=== PATIENT | male | born 2000 | race African-American/Black ===

== ENCOUNTER → 2024-01-31 | Outpatient (CLI) | payer OTHER | LOC: MHCPAIN 07:46 | DX: M51.26 Other intervertebral disc displacement, lumbar region (principal); M47.817 Spondylosis without myelopathy or radiculopathy, lumbosacral region | CPT/HCPCS: G0463 ==

== ENCOUNTER → 2024-03-15 | Outpatient (CLI) | payer OTHER | LOC: MHCPAIN 07:43 | DX: M51.26 Other intervertebral disc displacement, lumbar region (principal); M51.36 Other intervertebral disc degeneration, lumbar region | CPT/HCPCS: G0463 ==

== ENCOUNTER → 2024-05-18 | Outpatient (CLI) | payer OTHER ==
[~2024-05-18] MED LIST: Iohexol 300 - 10 ML VIAL ONE; Lidocaine PF 2% (20 MG/ML) 2 ML VIAL ONE
== END ==
LOC: MHCPAIN 12:31
DX: M54.16 Radiculopathy, lumbar region (principal); M54.50 Low back pain, unspecified
CPT/HCPCS: J1010; Q9967